=== PATIENT | female | born 1995 | race Caucasian/White ===

== ENCOUNTER 2019-01-09 14:12 | Inpatient (IN) ==
--- NOTE | 2019-01-09 15:43 | Emergency Department Note ---
Disposition Clinical Impression: Suicidal ideation, Self-inflicted injury Disposition: Admitted As Inpatient Condition: Good Referrals: NONE,PCP [Primary Care Provider] - Forms: ED Satisfaction Letter Time of Disposition: 16:05 Psych HPI - General Chief Complaint: ED Psychiatric Symptoms Stated Complaint: psych Time Seen by Provider: 01/09/19 14:19 Source: patient Mode of arrival: EMS Limitations: no limitations Nursing Notes Reviewed: Yes Vital Signs Reviewed: Yes - History of Present Illness HPI Narrative: This is a 23-year-old female with a history of anxiety and depression who presents from outside facility for psychiatric evaluation. The patient reports a plan that she wants to cut herself and her life. She has numerous abrasions that she performed with a razor today. She denies any alcohol but does use marijuana on a daily basis. No auditory or visual hallucinations. She continues to have persistent suicidal ideation. No homicidal ideation. No other complaints. Pt complaint: suicidal ideation Onset (ago): year(s) History of similar episodes: Yes Improves with: none Worsens with: none Alleged intoxication: No Associated Psychiatric Symptoms: depression, suicidal ideation Associated symptoms: Reports: denies other symptoms Traumatic symptoms: denies traumatic injury Treatments prior to arrival: none Self harm or harm to others: admits thoughts of self harm, has plan - Related Data Home Medications Medication Instructions Recorded Confirmed No Known Home Drugs 01/09/19 01/09/19 Allergies Allergy/AdvReac Type Severity Reaction Status Date / Time Penicillins Allergy Hives Verified 01/23/18 08:32 All systems ED: reviewed and negative except as stated. Psychiatric: Reports: anxiety, depression, suicidal thoughts. Denies: homicidal thoughts, auditory hallucinations, visual hallucinations Past Medical History - Past Medical History Attestation: Yes The following information was validated with the patient. 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 - Social History Smoking Status: Current every day smoker Smokeless Tobacco Status: No Alcohol use: Reports: none Drug use: Reports: none Physical Exam - General Limitations: no limitations General appearance: alert, in no apparent distress - Head Head exam: atraumatic, normocephalic, normal inspection - Eye Eye exam: Present: normal appearance - ENT ENT exam: normal exam - Neck Neck exam: Present: normal inspection - Chest Chest inspection: Present: normal inspection, symmetric chest wall rise - Respiratory Respiratory exam: Present: normal lung sounds bilaterally - Cardiovascular Cardiovascular exam: Present: regular rate, normal rhythm, irregular rhythm - Abdominal Exam Abdominal exam: Present: soft, Non-Tender. Absent: tenderness, distention, guarding, rigidity - Extremities Exam Extremities exam: Present: normal inspection, full ROM - Expanded Upper Extremity Exam Shoulder exam: Present: normal inspection, full ROM Arm exam: Present: normal inspection, full ROM Elbow exam: Present: normal inspection, full ROM Forearm/Wrist exam: Present: normal inspection, full ROM, abrasion (Superficial abrasions to the left wrist) Hand exam: Present: normal inspection, full ROM - Expanded Lower Extremity Exam Hip/Pelvis exam: Present: normal inspection, full ROM Upper leg exam: Present: normal inspection, full ROM, abrasion (The patient has numerous superficial abrasions to the left anterior lateral thigh) Knee exam: Present: normal inspection, full ROM Lower leg exam: Present: normal inspection, full ROM Ankle exam: Present: normal inspection, full ROM Foot/toe exam: Present: normal inspection, full ROM - Neurological Exam Neurological exam: Present: alert, other (GCS 15, no focal deficits.) - Psychiatric Psychiatric exam: Present: depressed, suicidal ideation - Skin Skin exam: Present: warm, dry, intact Course Course Narrative: Seen and examined. Reviewed previous workup. test added. Discussed with 1A for evaluation. Vital Signs Temperature 99.0 F 01/09/19 14:21 Pulse Rate 100 01/09/19 14:21 Respiratory Rate 18 01/09/19 14:21 Blood Pressure 140/90 01/09/19 14:21 O2 Sat by Pulse Oximetry 96 01/09/19 14:21 Temperature 99.0 F 01/09/19 14:21 Pulse Rate 100 01/09/19 14:21 Respiratory Rate 18 01/09/19 14:21 Blood Pressure 140/90 01/09/19 14:21 O2 Sat by Pulse Oximetry 96 01/09/19 14:21 Oxygen Delivery Oxygen Delivery Room Air Psych - MDM Narrative Medical decision making narrative: 23-year-old female presents for self-injurious behavior and suicidal ideation. Patient medically cleared. [place] slipped. Discussed with psychiatry who accepts the patient for admission. Patient reports tetanus UTD. - Lab Data Lab results reviewed: Yes I reviewed the patient's lab results. Lab Results 01/09/19 Range/Units 14:55 Urine Test Negative (Negative) Psychiatric Medical Clearance - Medical Clearance Checklist Medical History: No Social History Section defined Current Vitals: Last Vital Signs Temp 99.0 F 01/09/19 14:21 Pulse 100 01/09/19 14:21 Resp 18 01/09/19 14:21 BP 140/90 01/09/19 14:21 Pulse Ox 96 01/09/19 14:21 Statement of Medical Clearance: I have evaluated the patient, reviewed diagnostic information, and certify that the patient's medical condition is sufficiently stable that transfer to the psychiatric unit does not pose a significant risk of deterioration.
[2019-01-09] MEDS ORDERED: Ibuprofen 400 MG TABLET PO PRN (16:53)
[2019-01-09] MEDS ORDERED: traZODone 50 MG TABLET PO PRN (16:53)
[2019-01-09] MEDS ORDERED: Mag Hydrox/Al Hydrox/Simeth 30 ML UDC PO PRN (16:53)
[2019-01-09] MEDS ORDERED: Haloperidol Lactate 5 MG/ML VIAL IM PRN (16:53)
[2019-01-09] MEDS ORDERED: *HR* LORazepam 1 MG TABLET PO PRN (16:53)
[2019-01-09] MEDS ORDERED: MOM Conc 10 ML UD.LIQ PO PRN (16:53)
[2019-01-09] MEDS ORDERED: *HR* LORazepam 2 MG/ML VIAL IM PRN (16:53)
[2019-01-09] MEDS: Nicotine 2 MG GUM BC PRN (19:42)
[2019-01-10] MEDS: Nicotine 2 MG GUM BC PRN ×3 (08:09→19:15)
[2019-01-10] MEDS: hydrOXYzine pamoate 25 MG CAPSULE PO PRN (15:14)
--- NOTE | 2019-01-10 15:35 | Psychiatry History & Physical ---
Date of Encounter: 01/10/19 Time of Encounter: 14:40 History of Present Illness Patient Stated Chief Complaint: "I tried to commit suicide yesterday morning" Medicare Admission Attestation: For traditional Medicare patients the provided hospital inpatient services are reasonable and necessary and in the case of services not specified as inpatient-only under 42 CFR 419.22 (n), that they are appropriately provided as inpatient services in accordance 42 CFR 412.3. For Critical Access Hospital the patient may reasonably be expected to be discharged or transferred to a hospital within 96 hours after admission to the Critical Access Hospital. Admitted From: Emergency Dept Plans for Post Hospital Care: Home History of Present Illness: Ms. Uriostegui is a 23 year old female who reports attempting to commit suicide by cutting her wrist, but her boyfriend stopped her. She states that she has been under great deal stress lately. She found out a couple of days that her fianc relapsed on drugs last weekend and that he had an affair on her. She states that her car is broken down she does not have proper transportation. She is very stressed with her life the way it is currently. She states that she knows that her reaction to cut her wrist was just that, a reaction. She does not want to . She shows me a superficial cut on her left wrist that did not require sutures. She states that she did having a great deal of conflict with her boyfriend who is the father of her child. She has a 5-month-old child at home it is currently with her in-laws. She has no thoughts of hurting a child or anybody else. She lives with her fianc and is a [id number] mom. She denies breast-feeding and wants to talk about going on medication. She tells me that she has had depression on off the last 10 years. She did try counseling one time of [facility] about 3 years ago and was started on Lexapro, but that increased her anxiety. She did also did not like the counselor [facility] so did not go back. She states during her she had the nurse stretch box tender placed her on Zoloft which she found helpful. She understands the risk-benefit side effects of the Zoloft and would like to consider going back on that. She states that she stopped it during the last month for and never went back on it. In regards to her depression, for the last 4 to 5 months she has felt depressed more often than not. She does not like to do things that she used to like to do, she has decreased appetite. She has problems sleeping which may be related to being up at night with an infant, but has never slept well. She feels hopeless and helpless at times. She finds herself quite emotional, tearful and having thoughts of suicide. She is isolated and rarely leaves her home. Her finace supplies her with money and does most of the shopping for the household. In regards to naina, she states that she has problems sleeping but never goes for days and days without the need for sleep. She has no impulsive spending, no gambling, no hypersexual activity. She denies auditory or visual hallucinations, she denies mind reading, she denies getting special messages from the TV or radio. She knows she has a problem with depression and anxiety and wants to get treatment. She slept last night for approximately 3 hours on the unit and has started eating some on the unit. She feels that being in patient, getting treatment will help her get started in the right direction and help her not be depressed, thereby being better able to function better be a better mother. Past Med Surg Social Fam HX - Past Medical History Medical history: arthritis, GERD, kidney stones, other - Past Psychiatric History Psychiatric history: Reports: anxiety, depression, prior suicide attempt (13 y/o OD. Never hospitalized) Family psychiatric history: Yes (Father: anxiety Grandmother: Schizophrenia) Family History of Suicide: Completed (a cousin about a year ago) - Past Surgical History Surgical History: other (Tympanostomy tubes, dental procedures) - Social History Smoking Status: Current every day smoker Smokeless Tobacco Status: No Alcohol use: none Drug use: marijuana (sporadically to help with her anxiety) Occupational status: unemployed Current living situation: Home - Independent Activity Level: Independent ambulation Recent Out of Country Travel Within the Last 8 Weeks: No Exposure or Possible Exposure to Illness During Travel: No - Family History Father Name: elaina uriostegui Age: 46 Family Member Ethnicity: Non- Living Status: Still Living Hx Family Cardiac Disorders: No Hx Family Respiratory Disorders: Yes (COPD) Hx Family Cancer: No Hx Family GI Disorders: No Hx Family Genitourinary Disorders: No Hx Family Endocrine Disorder: No Hx Family Musculoskeletal Disorders: No Hx Family Neuromuscular Disorders: No Hx Family Neurologic Disorders: No Hx Family HEENT Disorders: No Hx Family Autoimmune Disorders: No Hx Family Reproductive Disorders: No Hx Family Psychosocial Disorders: No Hx Family Medical Disorders: No Medications & Allergies No Known Home Drugs 01/09/19 [History] Allergy/AdvReac Type Severity Reaction Status Date / Time Penicillins Allergy Hives Verified 01/10/19 21:56 Exam - HEENT Head exam IM: Present: atraumatic Eye exam IM: Present: EOMI - Neurological Neurological exam: Present: CN II-XII intact (per ED eval), alert - Constitutional Vitals: Temp Pulse Resp BP Pulse Ox 98.3 F 78 20 149/83 98 01/10/19 09:00 01/10/19 09:00 01/10/19 09:00 01/10/19 09:00 01/10/19 09:00 General appearance: age & developmentally appropriate, well-groomed, obese - Musculoskeletal Gait: normal Station: stiff Strength & Tone: normal for patient - Psychiatric Patient Orientation: Yes Person, Yes Time, Yes Place, Yes Circumstance Level of alertness: Alert, Follows commands Behavior: cooperative, anxious Psychomotor activity: Normal Eye Contact: Fleeting Contact Mood Description: Depressed, Anxious Affect description: congruent with mood Speech Volume: Normal Speech pattern: normal rate, normal rhythm, normal tone, fluent Language & Vocabulary: consistent with education Thought Process: Intact, Linear, Goal Oriented Thought Content: Yes Suicidal ideation (denies active thought at this time) Attention Span Ability: Capable of Focused Attention Memory Description: Grossly Intact Patient Reliability: Questionable Historian Fund of knowledge: Yes average Intelligence Estimate: Average Judgment: Fair Insight: Partial Results - Labs Labs: Laboratory Last Values Urine Test Negative (Negative) 01/09/19 14:55 Assessment and Plan (1) Depression, major, recurrent, moderate Current visit: Yes Status: Acute Plan: Admit inpatient for safety and stabilization, Close observation, Suicide Precautions per unit protocol, Encourage participation in unit milieu, Monitor sleep, Monitor appetite Risks, benefits, side effects, alternatives discussed w/pt: Yes (Restart her on Zoloft 50 mg that she was on during her . + result) Patient agreeable to treatment: Yes Estimated Length of Stay (Days): 5 (2) Anxiety Current visit: Yes Status: Acute Plan: Close observation, Encourage participation in unit milieu, Monitor sleep, Monitor appetite Risks, benefits, side effects, alternatives discussed w/pt: Yes (Zoloft and utilize Vistaril prn for anxiety ) Patient agreeable to treatment: Yes Estimated Length of Stay (Days): 5
[2019-01-11] MEDS: hydrOXYzine pamoate 25 MG CAPSULE PO PRN (08:59)
[2019-01-11] MEDS: Nicotine 2 MG GUM BC PRN (09:36)
[2019-01-11 10:14] VITALS: BP 114/80
--- NOTE | 2019-01-11 10:36 | Discharge Summary ---
Date of Encounter: 01/11/19 Time of Encounter: 08:00 Diagnosis - Discharge Diagnosis (1) Depression, major, recurrent, moderate Status: Acute Medications - Discharge Medications Prescriptions: hydrOXYzine pamoate [Vistaril] 25 mg PO TID PRN #30 capsule PRN Reason: Anxiety Transmission Status: Pending to [facility] [id number] Sertraline [Zoloft] 50 mg PO QAM #15 tablet Transmission Status: Pending to [facility] [id number] Sertraline [Zoloft] 50 mg PO QAM #15 tablet 01/11/19 [Rx] hydrOXYzine pamoate [Vistaril] 25 mg PO TID PRN #30 capsule 01/11/19 [Rx] Allergy/AdvReac Type Severity Reaction Status Date / Time Penicillins Allergy Hives Verified 01/10/19 21:56 Results Procedures and tests throughout hospitalization: Completed Lab Orders Category Date Time Status Test Result, Urine [URIN] Stat Lab 01/09/19 14:55 Completed Provider Date of admission: 01/09/19 16:14 Primary care physician: PCP NONE Discharging clinician: Marcelina Ghosh Psychiatry Exam - Constitutional Vitals: Temp Pulse Resp BP Pulse Ox 97.2 F L 85 16 114/80 97 01/11/19 09:00 01/11/19 09:00 01/11/19 09:00 01/11/19 09:00 01/11/19 09:00 General appearance: age & developmentally appropriate, well-groomed, well- nourished - Musculoskeletal Gait: normal Station: relaxed Strength & Tone: normal for patient - Psychiatric Patient Orientation: Yes Person, Yes Time, Yes Place, Yes Circumstance Level of alertness: Alert Behavior: calm, cooperative Psychomotor activity: Normal Eye Contact: Maintains Eye Contact Mood Description: Euthymic/stable Patient description of mood: Good Affect description: congruent with mood, full range Speech Volume: Normal Speech pattern: normal rate, normal rhythm, normal tone, fluent, spontaneous Language & Vocabulary: consistent with education Thought Process: Linear, Goal Oriented Thought Content: No Suicidal ideation, No Homicidal ideation, No Overt delusions Perceptual Disturbances: No Auditory hallucinations, No Visual hallucinations Attention Span Ability: Capable of Focused Attention Memory Description: Grossly Intact Patient Reliability: Reliable Historian Fund of knowledge: Yes abstraction ability, Yes aware of current events Intelligence Estimate: Average Judgment: Good Insight: Full Hospital Course Hospital course: Ms. Uriostegui is a 23 year old female who was admitted for depression. She had her Lexapro switched to Zoloft and she had when necessary Vistaril for anxiety. Patient was educated of diagnosis and the risk-benefit side effects of this alternative treatment options and was monitored for responsiveness and side effects. Mood anxiety sleep and appetite interest improved as did future orientation. Self-harm thoughts subsided, thinking cleared, psychosis resolved, and mood stabilized. Patient was able to attend both individual and group therapy sessions as well as meet with the psychiatrist daily and urged to discuss any medication or treatment issues or other concerns. The patient was educated primarily by verbal means about their diagnosis and manifestations in their life. The option for treatment including group and individual therapy programming was offered to the patient in addition to the use of medications with all their potential risks, benefits, and side effects as well as the risks of not taking medication and non-adhereance were discussed with the patient at length. The patient was given the opportunity to ask questions and was noted to participate in the treatment in the planning process. The patient felt ready and eager to be discharged from the inpatient psychiatric unit to continue on with treatment as an outpatient. The patient agreed that is they were safe for this disposition. The patient was considered to be able to participate in informed consent and decision making with respect to medical, legal, and financial issues of the time of discharge. At the time of discharge the patient adamantly denied any concerns for lethality including suicidal or homicidal thoughts ideations or plans and was future oriented toward ongoing mental health care, medical follow-up and sobriety. Time spent discussing smoking cessation with patient: 3 to 10 minutes Does patient wish to continue nicotine replacement upon disc: No - Time Spent with Patient Total time spent providing and/or coordinating discharge services: 20 Less than 30 minutes Specific discharge activities: Interval history reviewed. Available labs reviewed . Psychotherapy provided. Patient had an opportunity to ask questions and address concerns. Patient was in agreement with the treatment plan. The risks benefits and side effects of medications were discussed with the patient, including alternatives and treatment. The patient was educated on the abstaining from any alcohol or illicit substances, following up with all scheduled appointments, and taking all medications as prescribed. Assessment and Plan - Patient/Caregiver Discharge Instructions Activity: resume usual activities as tolerated Diet: regular diet Additional Instructions: Continue current medications. Follow up with outpatient mental health. Encourage continued therapy in a group or individual setting. The patient was discharged to home. Mrs. Uriostegui mentioned that she has been cosleeping with her baby. We discussed the risk of this and specifically not to use any of the Vistaril or other sedating medications prior to this as it can increase the risk of harm to the child including smothering. - Follow up Plan Follow up with: NONE,PCP [Primary Care Provider] - Functional capacity at discharge: independent ambulation Overall status at discharge: Stable Disposition: Home, Self-Care Quality - Multiple Antipsychotics Patient discharged on 2 or more antipsychotic medications: No Procedures - Procedures Procedures: Medication Management, Crisis Stabilization, Supportive Therapy, Group Therapy, Psychoeducational Therapy
== END 2019-01-11 13:45 | disposition home or self-care (01) | DRG 751 ==
LOC: EMEROOARM 14:12 → SUATTDRO 16:14 → 1ANU 16:14
PROVIDERS: ADMIT Psychiatry & Neurology Psychiatry; ATTEND Psychiatry & Neurology Psychiatry